=== PATIENT | female | born 1990 | race African-American/Black ===

== ENCOUNTER 2016-10-09 16:39 | Emergency (ER) | payer OTHER ==
[~2016-10-09] VITALS: Ht 167.6 cm; Wt 117.9 kg
--- NOTE | ~2016-10-09 | H ---
[facility] [place] [address] HISTORY AND PHYSICAL Name: JULIO CESAR ARGUELLO Room #: DEP TISH Connor#: [id number] Admission: 10/09/16 Attend Phys: Discharge: 10/09/16 Date of : 88 Report #: [id number] THIS REPORT FOR: //name// CC: [facility] physician/PCP Rommel Villaseñor DATE OF SERVICE: 10/09/2016 REASON FOR CONSULTATION: Infected neck. HISTORY OF PRESENT ILLNESS: The patient is a 26-year-old female who presents with a 10-day history of submental neck swelling. She has had no fever, but she has tenderness. This has occurred before. She has a white blood cell count of 13,000. PAST MEDICAL HISTORY: Polycystic ovaries. MEDICATIONS: Metformin. ALLERGIES: None. PHYSICAL EXAMINATION: GENERAL: Mildly obese female. EARS: Normal tympanic membranes. NOSE: Normal mucosa. ORAL: Normal mucosa. NECK: , submental neck swelling and tenderness over the thyroglossal membrane. LABORATORY DATA: CT scan revealed cystic mass over the thyrohyoid membrane. ASSESSMENT: Infected thyroglossal duct cyst. RECOMMENDATIONS: 1. Vancomycin 1 g. 2. Unasyn 3 g IV. 3. Augmentin 875 mg p.o. b.i.d. 4. Follow up in my office in 5 days. Eventually, this will need to be excised. <ELECTRONICALLY SIGNED> By: Ok Russo MD 10/10/16 1313 [id number] Ok Russo MD /lolis
[2016-10-09] MEDS ORDERED: METFORMIN HCL500 MG PO (16:44)
[2016-10-09 17:23] LABS: HEMOGLOBIN 7.4 gm/dL (12.0-15.0); WBC 13.3 thou/uL (4.0-11.0)
[2016-10-09 17:29] LABS: HEMATOCRIT 28.4 % (37.0-47.0); MCH 13.1 pg (26.0-34.0); MCHC 26.1 % (28.0-37.0); PLATELET COUNT 556 thou/uL (150-400); RBC 5.68 mil/uL (4.20-5.00); RDW 21.9 % (10.5-14.5)
[2016-10-09 17:30] LABS: MANUAL DIFF YES
[2016-10-09 17:31] LABS: CALCIUM 9.2 mg/dL (8.5-10.1); POTASSIUM 3.7 mmol/L (3.5-5.1)
[2016-10-09 17:49] LABS: ABSOLUTE NEUTROPHILS 8.8 thou/uL (1.4-8.2); HYPOCHROMASIA 3+; TOTAL CELL COUNT 100
[2016-10-09 17:50] LABS: ANISOCYTOSIS 1+; LARGE PLATELETS FEW; POIKILOCYTOSIS 1+; POLYCHROMASIA SLIGHT
[2016-10-09] MEDS ORDERED: AUGMENTIN 875875 MG PO (19:08)
[2016-10-09 21:40] VITALS: BP 134/82
== END 2016-10-09 21:42 | disposition home or self-care (01) ==
LOC: ER 16:39
PROVIDERS: Physician Assistant
DX: Q89.2 Congenital malformations of other endocrine glands (principal); D64.9 Anemia, unspecified; D72.829 Elevated white blood cell count, unspecified; L02.91 Cutaneous abscess, unspecified